=== PATIENT | female | born 1955 | race American Indian/Alaskan Native ===

== ENCOUNTER 2019-02-26 16:04 | Emergency (ER) | payer MEDICARE ==
--- NOTE | 2019-02-26 16:24 | Event Note ---
ED Screening Note ED Screening Note: pt presents s/p a fall that occurred at 12PM states she is moving from her house states that she stepped over the frame of the bed and fell c/o left wrist pain, right lower back pain, right rib pain This initial assessment/diagnostic orders/clinical plan/treatment(s) is/are subject to change based on patients health status, clinical progression and re- assessment by fellow clinical providers in the ED. Further treatment and workup at subsequent clinical providers discretion. Patient/guardian urged not to elope from the ED as their condition may be serious if not clinically assessed and managed. Initial orders include: XR of the left wrist, L-spine, and right rib
--- NOTE | 2019-02-26 17:26 | XRay Report ---
Lumbar spine series, 3 views CLINICAL HISTORY: Trauma. Patient fell sustaining back injury. Low back pain. TECHNIQUE: AP and lateral lumbar spine images and coned-down lateral image lumbosacral junction were obtained. FINDINGS: Transitional vertebral anatomy is noted with partial lumbarization of the first sacral vertebrae. There is no indication of fracture or traumatic subluxation. Normal alignment is maintained throughou t the lumbar region.. Advanced facet arthropathy is observed at the L5-S1 level. Facet arthropathy is also a prominent find ing at the L4-5 level. Evidence of left-sided nephrolithiasis. Presumed calcified phleboliths are present within the pelvis. IMPRESSION: 1. No indication of fracture or traumatic subluxation. 2. Advanced facet arthropathy L4-5 and L5-S1 levels. Signer Name: Hernandez Booth MD Signed: 02/26/2019 5:21 PM Workstation Name: [id number]
--- NOTE | 2019-02-26 17:31 | XRay Report ---
LEFT WRIST 3 VIEWS INDICATION / CLINICAL INFORMATION: fall, left wrist pain COMPARISON: None available. FINDINGS: BONES and JOINT(S): There is a mildly displaced fracture of the distal radial metaphysis with probabl e intra-articular extension. A nondisplaced oblique fracture is seen along the ulnar styloid. No disl ocation or significant arthritis is seen. SOFT TISSUES: There is generalized moderate edema along the wrist. ADDITIONAL FINDINGS: None. IMPRESSION: Acute left wrist fractures as above. Signer Name: Ricci Hdz MD Signed: 02/26/2019 5:27 PM Workstation Name: [id number]
--- NOTE | 2019-02-26 17:31 | XRay Report ---
RIGHT RIBS 5 VIEWS INDICATION / CLINICAL INFORMATION: MAIN: fall, right rib pain while moving. COMPARISON: None available. FINDINGS: RIBS: No acute, displaced fracture or other acute abnormality. LUNGS: No acute finding. No pneumothorax. Signer Name: Deniz Warren MD Signed: 02/26/2019 5:27 PM Workstation Name: [id number]
[2019-02-26 17:37] VITALS: BP 132/74
[2019-02-26] MEDS ORDERED: HYDROcodone/ACETAMINOPHEN 5-325 MG TAB PO ONE (18:16)
--- NOTE | 2019-02-26 18:41 | Emergency Department Report ---
HPI - General Chief Complaint: Fall Time Seen by Provider: 02/26/19 16:22 - HPI HPI: 64-year-old female presents to the emergency department with complaint of left forearm and wrist pain, right-sided chest/rib pain, and some low back pain after falling while at home. The patient is currently moving and says that she was taking her bed apart when she tripped over the side of the bed frame. She tried to brace herself by placing her arms over her chest and fell forward on top of them. She denies hitting her head or any loss of consciousness. She did not take anything for her symptoms prior to presentation. All of her pains worsen with movement. This happened at around 12 PM this afternoon. ED Past Medical Hx - Past Medical History Hx GERD: Yes Hx Liver Disease: Yes - Surgical History Hx Cholecystectomy: Yes - Social History Smoking Status: Former Smoker Substance Use Type: Alcohol, Prescribed - Medications Home Medications: Home Medications Medication Instructions Recorded Confirmed Last Taken Type Cyclobenzaprine [Flexeril 10mg] 10 mg PO BID PRN #10 tablet 05/16/14 Unknown Rx traMADoL [Ultram 50 MG tab] 50 mg PO Q6HR PRN #15 tablet 02/26/19 Unknown Rx ED Review of Systems ROS: Stated complaint: LT HAND INJURY Other details as noted in HPI Comment: All other systems reviewed and negative Constitutional: denies: chills, fever Eyes: denies: vision change Respiratory: denies: cough, shortness of breath Cardiovascular: chest pain (right sided chest / rib pain). denies: palpitations Gastrointestinal: denies: abdominal pain, vomiting Musculoskeletal: back pain, arthralgia, myalgia Skin: denies: rash, lesions Neurological: denies: headache, numbness, paresthesias Physical Exam - Physical Exam Vital Signs: Vital Signs 02/26/19 02/26/19 16:13 17:36 Temperature 98.2 F Pulse Rate 75 69 Respiratory 17 17 Rate Blood Pressure 126/69 Blood Pressure 132/74 [Left] O2 Sat by Pulse 92 98 Oximetry Physical Exam: GENERAL: The patient is well-developed well-nourished. HENT: Normocephalic. Atraumatic. Patient has moist mucous membranes. EYES: Extraocular motions are intact. Pupils equal reactive to light bilaterally. NECK: Supple. Trachea is midline. CHEST/LUNGS: Clear to auscultation. There is no respiratory distress noted. There is some reproducible right-sided chest pain to palpation. No crepitus or deformity. HEART/CARDIOVASCULAR: Regular. There is no tachycardia. There is no murmur. ABDOMEN: Abdomen is soft, nontender. Patient has normal bowel sounds. There is no abdominal distention. SKIN: Skin is warm and dry. NEURO: The patient is awake, alert, and oriented. The patient is cooperative. The patient has no focal neurologic deficits. Normal speech. MUSCULOSKELETAL: There is tenderness to palpation to the left wrist and distal forearm. Radial pulse +2 over 4 and capillary refill less than 2 seconds to the affected left upper extremity. Decreased range of motion of the left hand, wrist and forearm secondary to pain. BACK: No midline thoracic or lumbar tenderness to palpation, step-off or deformity. There is some reproducible right-sided paraspinal tenderness to palpation. ED Course Vital Signs 02/26/19 02/26/19 16:13 17:36 Temperature 98.2 F Pulse Rate 75 69 Respiratory 17 17 Rate Blood Pressure 126/69 Blood Pressure 132/74 [Left] O2 Sat by Pulse 92 98 Oximetry ED Medical Decision Making - Radiology Data Radiology results: image reviewed interpreted by me: X-ray of the lumbar spine does not show any fracture, subluxation or any acute process. Chest x-ray does not show any acute process. There are no pleural effusions, obvious pneumonia and there is no pneumothorax. Left wrist x-ray shows a distal radial fracture with some possible intra- articular extension and a nondisplaced ulnar styloid fracture. - Medical Decision Making This patient had a mechanical fall and presents with some right lateral lumbar pain, left wrist and forearm pain and some right-sided chest wall pain. X-rays were done of all these areas and the patient was found to have a distal left radius fracture and left ulnar styloid fracture. She was placed in a OCL volar splint and given referrals for orthopedists. They can also reevaluate her for her back pain. She does not have any problems with bowel or bladder, numbness or paresthesias or any neurological deficits. She appears low suspicion for any of the emergent back condition such as cauda equina or cord compression syndrome. Patient was seen ambulatory prior to discharge and both appears and feels stable. She will return to the emergency Department with any worsening of her symptoms or any acute distress. - Differential Diagnosis fracture, contusion, sprain, strain, dislocation Critical Care Time: No Critical care attestation.: If time is entered above; I have spent that time in minutes in the direct care of this critically ill patient, excluding procedure time. ED Disposition Clinical Impression: Chest wall pain, Fall Distal radius fracture, left Qualifiers: Encounter type: initial encounter Fracture type: closed Fracture morphology: unspecified fracture morphology Qualified Code(s): S52.502A - Unspecified fracture of the lower end of left radius, initial encounter for closed fracture Fracture of ulnar styloid Qualifiers: Encounter type: initial encounter Fracture type: closed Fracture alignment: nondisplaced Laterality: left Qualified Code(s): S52.615A - Nondisplaced fracture of left ulna styloid process, initial encounter for closed fracture Low back pain Qualifiers: Chronicity: acute Back pain laterality: right Sciatica presence: without sciatica Qualified Code(s): M54.5 - Low back pain Disposition: TO HOME OR SELFCARE Is pt being admited?: No Condition: Stable Instructions: Wrist Fracture in Adults (ED), Back Pain (ED), Fall Prevention (ED) Additional Instructions: Please follow-up with a orthopedist in the next few days. I have given you a referral for 2 different local orthopedic groups. Remain in the splint until follow-up with the orthopedist. Please do not get the splint wet or it will lose its structural integrity. Return to the emergency Department with any worsening of your symptoms or any acute distress. You have been prescribed a medication that is sedating and therefore should not be taken prior to driving, working, and responsible for children and in no way should be mixed with alcohol of any quantity. Prescriptions: traMADoL [Ultram 50 MG tab] 50 mg PO Q6HR PRN #15 tablet PRN Reason: Pain Referrals: OG RUBY MD [Staff Physician] - 2-3 Days [facility] [Provider Group] - 2-3 Days Time of Disposition: 19:17
== END 2019-02-26 20:18 | disposition home or self-care (01) ==
LOC: ED 16:04
DX: S52.502A Unspecified fracture of the lower end of left radius, initial encounter for closed fracture (principal); S52.615A Nondisplaced fracture of left ulna styloid process, initial encounter for closed fracture; M54.5 Low back pain; R07.89 Other chest pain; K21.9 Gastro-esophageal reflux disease without esophagitis; Z90.49 Acquired absence of other specified parts of digestive tract; Z87.891 Personal history of nicotine dependence; Z88.0 Allergy status to penicillin; W01.190A Fall on same level from slipping, tripping and stumbling with subsequent striking against furniture, initial encounter; Y93.89 Activity, other specified; Y92.89 Other specified places as the place of occurrence of the external cause; Y99.8 Other external cause status
CPT/HCPCS: 72100

== ENCOUNTER 2019-12-08 10:43 | Outpatient (CLI) | payer MEDICARE ==
--- NOTE | 2019-12-08 11:59 | XRay Report ---
LEFT WRIST 4 VIEWS INDICATION: M25.532Pain in left wrist. COMPARISON: 02/26/2019 FINDINGS: Healed distal radius and distal ulnar fractures are noted. There is mild osteoarthrosis. No acute fra cture is identified. IMPRESSION: 1. No acute findings. Signer Name: Jamil Lu MD Signed: 12/08/2019 11:55 AM Workstation Name: [id number]
== END 2019-12-08 10:44 | disposition home or self-care (01) ==
LOC: XRAY 10:43
PROVIDERS: ATTEND Orthopaedic Surgery
DX: S52.502A Unspecified fracture of the lower end of left radius, initial encounter for closed fracture (principal); X58.XXXA Exposure to other specified factors, initial encounter; Y93.89 Activity, other specified; Y92.89 Other specified places as the place of occurrence of the external cause; Y99.8 Other external cause status